=== PATIENT | male | born 1960 | race Caucasian/White ===

== ENCOUNTER 2023-07-19 16:20 | Observation (INO) ==
[2023-07-19] MEDS: ONDANSETRON INJ 2 MG/ML 2 ML VIAL IV STA (16:36)
[2023-07-19] MEDS: SODIUM CHLORIDE 0.9% 500 ML IV STA (16:36)
--- NOTE | 2023-07-19 16:45 | Emergency Department Note ---
Impression & Plan Precordial chest pain, Epigastric abdominal pain, Acute hyponatremia, Vomiting ED Provider Note NAME: NAZ MARIE AGE: 62 SEX: M : 1960 ARRIVES VIA: Walk-In INFORMANT: [Patient] ED PROVIDER(S): [Herman Muro MD] CHIEF COMPLAINT: Chest pain HISTORY OF PRESENT ILLNESS: The patient is a 62-year-old male presents to the ER with lower sternal chest/abdominal pain. The pain has been present all day, for over 10 hours. The pain has waxed and waned but there has always been some discomfort present. He has felt short of breath and nauseated and he did vomit 1 time. No diarrhea. No fever, no cough. The patient does not have any diagnosed coronary disease. He has had pancreatitis in the past that was thought medication related. The patient sometimes does drink 10 beers a day. The patient is not from the area, he is driving through. He stopped at this hospital as he was concerned for his heart. PMHx/PSHx/Social Hx: See Below PHYSICAL EXAM: GENERAL: Patient is in no acute distress. HEENT: No acute trauma, normocephalic atraumatic, mucous membranes moist, no nasal congestion. NECK: No stridor, no adenopathy, no meningismus, trachea is midline. LUNGS: Clear to auscultation bilaterally, no wheeze, no rhonchi, breath sounds equal. HEART: Without murmurs gallops or rubs, regular rate and rhythm. ABDOMEN: Soft, tender in the midepigastrium, no distention EXTREMITIES: No cyanosis, full range of motion of all the joints without pain or difficulty. NEUROLOGIC: Oriented x 3, no acute motor or sensory deficits, no focal weakness. SKIN: No jaundice, no diaphoresis. DIFFERENTIAL DIAGNOSIS: Pancreatitis, biliary colic, gastritis or ulcer, [place], cardiac ischemia, viral illness, among others. EMERGENCY DEPARTMENT PROCEDURES: MEDICAL DECISION MAKING: There is no leukocytosis or concerning anemia. There is a normal platelet count. No coagulopathy. Sodium is low at 128. There was an anion gap present. CO2 was low consistent with some acidosis. There was no renal failure. No concerning liver enzyme elevation. No evidence for pancreatitis. ECG showed a normal sinus rhythm, no ischemia. Cardiac enzyme testing x 2 was not suggestive of acute cardiac injury. Chest x-ray did not show mediastinal widening, pneumonia or pneumothorax. The patient was given IV saline, 1.5 L. He was given IV Pepcid, IV Zofran. The patient does not appear to be having an [place]. His pain is likely gastric in origin. He may have gastritis. He does at times drink alcohol heavily. Given the hyponatremia, given his discomfort, given the elevated anion gap, given his vomiting--further workup inpatient was felt warranted. I spoke with the patient and case management, the on-call hospitalist was consulted. Prior/Outside records/notes reviewed: None ECG per my interpretation: Indication was chest/abdominal pain. The ECG shows a normal sinus rhythm with a rate of 99. There is no acute ST elevation, no PVCs. The QTc is 438. Continuous Cardiac Monitoring per my interpretation: An order was placed for continuous cardiac monitoring. The monitor shows a rate of 97 with normal sinus rhythm. Imaging/x-ray results per my interpretation: Chest x-ray does not show free air, pneumonia or pneumothorax. Chronic Medical/Social conditions affecting care: Previous history of pancreatitis, history of diabetes. Care/Management discussed with: Case management, the on-call hospitalist. Level of care consideration(s): After review of the information above and other included data: --I believe the patient requires escalation of care to admission DISPOSITION: Admission Past Med/Surg History Problem List (Updated 07/19/23 @ 21:33 by Herman Muro MD) Vomiting (Acute) Acute hyponatremia (Acute) Epigastric abdominal pain (Acute) Precordial chest pain (Acute) Hyponatremia Abdominal pain T2DM (type 2 diabetes mellitus) Medical History Alcohol use Hypertension Social History Smoking Status: Former smoker Tobacco Type: Cigarettes and Smokeless Tobacco (Dip or Chew) Hx Alcohol Use: Yes Feels Safe at Home: Yes Allergies Allergies Allergy/AdvReac Type Severity Reaction Status Date / Time Iodinated Contrast Media Allergy Intermediate Hives Unverified 07/19/23 20:25 feathers Allergy Mild Sneezing Verified 07/19/23 17:05 metformin AdvReac Severe PANCREATITI Verified 07/19/23 17:05 S Home Meds Home Medications Medication Instructions Recorded Confirmed No Known Home Medications 07/19/23 07/19/23 Results & Data (ED) Vital Signs Vital Signs - 24 hr 07/19/23 16:22 07/19/23 16:31 07/19/23 16:41 Temperature 36.4 C L Temperature Source Oral Pulse Rate 102 H 97 H Pulse Rate [Apical] Respiratory Rate 18 Respiratory Effort / Characteristics Non-Labored Respiratory Depth Normal Respiratory Pattern Regular Blood Pressure 114/69 Blood Pressure [Right Arm] Blood Pressure Mean 84 Blood Pressure Mean [Right Arm] Pulse Oximetry 97 Oxygen Delivery Method Room Air Room Air Sepsis Recent Fever Within 48 Hours No Sepsis New/Unexplained Change in Mental Status N/A Sepsis Action Taken by Nursing No Action Required 07/19/23 18:21 07/19/23 20:46 Temperature Temperature Source Pulse Rate 95 H Pulse Rate [Apical] 99 H Respiratory Rate 19 Respiratory Effort / Characteristics Respiratory Depth Respiratory Pattern Blood Pressure Blood Pressure [Right Arm] 136/79 Blood Pressure Mean Blood Pressure Mean [Right Arm] 98 Pulse Oximetry Oxygen Delivery Method Sepsis Recent Fever Within 48 Hours Sepsis New/Unexplained Change in Mental Status Sepsis Action Taken by Alf Medications Current Medication List: was personally reviewed by me Laboratory Data Attestation: I reviewed the patient's lab results. 07/19/23 17:48 07/19/23 16:38 Lab Results 07/19/23 07/19/23 07/19/23 Range/Units 16:38 17:48 17:49 WBC Cancelled 6.15 RBC Cancelled 4.90 Hgb Cancelled 14.6 Hct Cancelled 40.8 L MCV Cancelled 83.3 MCH Cancelled 29.8 MCHC Cancelled 35.8 RDW Std Deviation Cancelled 39.5 RDW Coeff of Caity Cancelled 13.1 Plt Count Cancelled 283 MPV Cancelled 8.9 L Immature Gran % (Auto) Cancelled 1.0 Neut % (Auto) Cancelled 65.0 Lymph % (Auto) Cancelled 21.0 Mcleod % (Auto) Cancelled 10.4 Eos % (Auto) Cancelled 1.8 Baso % (Auto) Cancelled 0.8 Neut # (Auto) Cancelled 4.00 Lymph # (Auto) Cancelled 1.29 Mcleod # (Auto) Cancelled 0.64 H Eos # (Auto) Cancelled 0.11 Baso # (Auto) Cancelled 0.05 Immature Gran # (Auto) Cancelled 0.06 Absolute Nucleated RBC Cancelled Nucleated RBC % (auto) Cancelled Neutrophils % (Manual) Cancelled Band Neutrophils % Cancelled Lymphocytes % (Manual) Cancelled Prolymphocyte % Cancelled Reactive Lymphs % (Man) Cancelled Monocytes % (Manual) Cancelled Eosinophils % (Manual) Cancelled Basophils % (Manual) Cancelled Metamyelocytes % (Man) Cancelled Myelocytes % (Man) Cancelled Promyelocytes % (Man) Cancelled Blast Cells % (Manual) Cancelled Plasma Cell % (Manual) Cancelled Other Cells % Cancelled Nucleated RBC % Cancelled Neutrophils # (Manual) Cancelled Band Neutrophils # Cancelled Total Absolute Neuts Cancelled Lymphocytes # (Manual) Cancelled Prolymphocyte # Cancelled Reactive Lymphs # Cancelled Total Abs Lymphocytes Cancelled Monocytes # (Manual) Cancelled Eosinophils # (Manual) Cancelled Basophils # (Manual) Cancelled Metamyelocytes # (Man) Cancelled Myelocytes # (Manual) Cancelled Promyelocytes # (Man) Cancelled Blast Cells # (Man) Cancelled Plasma Cell # (Manual) Cancelled Other Cells # Cancelled Nucleated RBCs # (Man) Cancelled Hypersegmented Neuts Cancelled Hyposegmented Neuts Cancelled Hypogranular Neuts Cancelled Large Granular Lymphs Cancelled # Lrg Granular Lymphs Cancelled Hairy Cells Cancelled Smudge Cells Cancelled Toxic Granulation Cancelled Toxic Vacuolation Cancelled Dohle Bodies Cancelled Kyle Rods Cancelled Platelet Estimate Cancelled Hypogranular Platelets Cancelled Giant Platelets Cancelled Platelet Satelliting Cancelled RBC Morphology Cancelled Polychromasia Cancelled Hypochromasia Cancelled Poikilocytosis Cancelled Basophilic Stippling Cancelled Anisocytosis Cancelled Microcytosis Cancelled Macrocytosis Cancelled Spherocytes Cancelled Pappenheimer Bodies Cancelled Sickle Cells Cancelled Target Cells Cancelled Tear Drop Cells Cancelled Ovalocytes Cancelled Stomatocytes Cancelled Boone-Hemlock Bodies Cancelled Echinocytes Cancelled Acanthocytes (Spur) Cancelled Rouleaux Cancelled RBC Agglutinates Cancelled Schistocytes Cancelled Sezary Cell Cancelled PT 10.0 (9.0-12.0) Seconds INR 0.9 (0.9-1.1) APTT 22 (21-31) Seconds PTT Ratio 0.8 VBG pH (7.36-7.41) VBG pCO2 (38-50) mmHg VBG pO2 mmHg VBG HCO3 mmol/L VBG O2 Saturation % VBG Base Excess mEq/L Sodium 128 L (136-145) mmol/L Potassium 4.5 (3.5-5.1) mmol/L Chloride 92 L (98-107) mmol/L Carbon Dioxide 19 L (21-32) mmol/L Anion Gap 17 H (3-11) BUN 9 (6-23) mg/dl Creatinine 0.59 L (0.6-1.4) mg/dl Est Cr Clr Drug Dosing 137.5 ml/min Est GFR ( Amer) 127.5 ml/min Est GFR (Non-Af Amer) 110.0 ml/min BUN/Creatinine Ratio 15.3 (10-20) Glucose 162 H (70-99(Fasting)) mg/dl POC Glucose (70-99) mg/dl Calcium 10.3 (8.6-10.3) mg/dl Magnesium 1.7 (1.7-2.4) mg/dl Total Bilirubin 0.6 (0.2-1.0) mg/dl AST 23 (13-39) U/L ALT 22 (7-52) U/L Alkaline Phosphatase 55 (34-104) U/L Troponin I High Sens 8.6 9.1 (0-20) pg/ml Total Protein 7.6 (6.0-8.3) gm/dl Albumin 4.4 (3.4-5.0) gm/dl Globulin 3.2 (2.5-4.0) gm/dl Albumin/Globulin Ratio 1.4 (0.9-2) Lipase 23 (11-82) U/L Blood Parasites ID Cancelled 07/19/23 07/19/23 Range/Units 20:30 20:33 WBC RBC Hgb Hct MCV MCH MCHC RDW Std Deviation RDW Coeff of Caity Plt Count MPV Immature Gran % (Auto) Neut % (Auto) Lymph % (Auto) Mcleod % (Auto) Eos % (Auto) Baso % (Auto) Neut # (Auto) Lymph # (Auto) Mcleod # (Auto) Eos # (Auto) Baso # (Auto) Immature Gran # (Auto) Absolute Nucleated RBC Nucleated RBC % (auto) Neutrophils % (Manual) Band Neutrophils % Lymphocytes % (Manual) Prolymphocyte % Reactive Lymphs % (Man) Monocytes % (Manual) Eosinophils % (Manual) Basophils % (Manual) Metamyelocytes % (Man) Myelocytes % (Man) Promyelocytes % (Man) Blast Cells % (Manual) Plasma Cell % (Manual) Other Cells % Nucleated RBC % Neutrophils # (Manual) Band Neutrophils # Total Absolute Neuts Lymphocytes # (Manual) Prolymphocyte # Reactive Lymphs # Total Abs Lymphocytes Monocytes # (Manual) Eosinophils # (Manual) Basophils # (Manual) Metamyelocytes # (Man) Myelocytes # (Manual) Promyelocytes # (Man) Blast Cells # (Man) Plasma Cell # (Manual) Other Cells # Nucleated RBCs # (Man) Hypersegmented Neuts Hyposegmented Neuts Hypogranular Neuts Large Granular Lymphs # Lrg Granular Lymphs Hairy Cells Smudge Cells Toxic Granulation Toxic Vacuolation Dohle Bodies Kyle Rods Platelet Estimate Hypogranular Platelets Giant Platelets Platelet Satelliting RBC Morphology Polychromasia Hypochromasia Poikilocytosis Basophilic Stippling Anisocytosis Microcytosis Macrocytosis Spherocytes Pappenheimer Bodies Sickle Cells Target Cells Tear Drop Cells Ovalocytes Stomatocytes Boone-Hemlock Bodies Echinocytes Acanthocytes (Spur) Rouleaux RBC Agglutinates Schistocytes Sezary Cell PT (9.0-12.0) Seconds INR (0.9-1.1) APTT (21-31) Seconds PTT Ratio VBG pH 7.39 (7.36-7.41) VBG pCO2 37 L (38-50) mmHg VBG pO2 40 mmHg VBG HCO3 22 mmol/L VBG O2 Saturation 71.0 % VBG Base Excess -2.2 mEq/L Sodium (136-145) mmol/L Potassium (3.5-5.1) mmol/L Chloride (98-107) mmol/L Carbon Dioxide (21-32) mmol/L Anion Gap (3-11) BUN (6-23) mg/dl Creatinine (0.6-1.4) mg/dl Est Cr Clr Drug Dosing ml/min Est GFR ( Amer) ml/min Est GFR (Non-Af Amer) ml/min BUN/Creatinine Ratio (10-20) Glucose (70-99(Fasting)) mg/dl POC Glucose 149 H (70-99) mg/dl Calcium (8.6-10.3) mg/dl Magnesium (1.7-2.4) mg/dl Total Bilirubin (0.2-1.0) mg/dl AST (13-39) U/L ALT (7-52) U/L Alkaline Phosphatase (34-104) U/L Troponin I High Sens (0-20) pg/ml Total Protein (6.0-8.3) gm/dl Albumin (3.4-5.0) gm/dl Globulin (2.5-4.0) gm/dl Albumin/Globulin Ratio (0.9-2) Lipase (11-82) U/L Blood Parasites ID Administered Medications Diphenhydramine HCl (Diphenhydramine 50 Mg/Ml Vial) 50 mg IV ONE ONE Stop: 07/19/23 23:34 Last Admin: 07/19/23 19:45 Dose: Not Given Documented By: KALI Discontinued Medications Diphenhydramine HCl (Diphenhydramine 50 Mg/Ml Vial) Confirm Administered Dose 50 mg .ROUTE .STK-MED ONE Stop: 07/19/23 19:41 Last Admin: 07/19/23 19:44 Dose: 50 mg Documented By: KALI Sodium Chloride (Nss) 500 mls @ 999 mls/hr IV .Q31M STA Stop: 07/19/23 17:01 Last Infusion: 07/19/23 17:07 Dose: Infused Documented By: Admin: 07/19/23 16:36 Dose: 999 mls/hr Documented By: ABIMBOLA Famotidine (Pepcid 20mg Iv Push) 20 mg in 5 mls @ 2.5 mls/min IV NOW STA Stop: 07/19/23 16:42 Last Admin: 07/19/23 16:54 Dose: 2.5 mls/min Documented By: KALI Sodium Chloride (Nss) 1,000 mls @ 999 mls/hr IV .Q1H1M ONE Stop: 07/19/23 19:14 Last Infusion: 07/19/23 19:47 Dose: Infused Documented By: Admin: 07/19/23 18:46 Dose: 999 mls/hr Documented By: KALI Insulin Glargine (Lantus Per Unit Charge) 5 units SQ NOW STA Stop: 07/19/23 19:27 Last Admin: 07/19/23 20:37 Dose: 5 units Documented By: KALI Co-signed By: EZIO Ioversol (Optiray 320 100ml) 94 ml IV ONCE ONE Stop: 07/19/23 20:21 Last Admin: 07/19/23 20:21 Dose: 94 ml Documented By: MADISYN Methylprednisolone (Methylprednisolone 125 Mg/2 Ml Vial) 125 mg IV NOW STA Stop: 07/19/23 19:34 Last Admin: 07/19/23 19:42 Dose: 125 mg Documented By: KALI Ondansetron HCl (Ondansetron Inj 2 Mg/Ml 2 Ml Vial) 4 mg IV NOW STA Stop: 07/19/23 16:32 Last Admin: 07/19/23 16:36 Dose: 4 mg Documented By: ABIMBOLA Pantoprazole Sodium (Pantoprazole 40 Mg Tab) 40 mg PO NOW ONE Stop: 07/19/23 19:31 Last Admin: 07/19/23 19:41 Dose: 40 mg Documented By: KALI Imaging Data Radiologist's Impression: Chest X-Ray 07/19/23 16:31 SINGLE VIEW CHEST CLINICAL HISTORY: Atypical chest pain. FINDINGS: An AP, portable, upright chest radiograph is obtained. No prior studies are available for comparison at the time of dictation. The examination is mildly degraded by portable technique and patient rotation. The cardiomediastinal silhouette is unremarkable noting atherosclerotic calcification of the thoracic aorta. There is mild bibasilar atelectasis. The lungs and pleural spaces are otherwise clear. No pneumothorax is seen. The bony thorax is grossly intact. IMPRESSION: No acute cardiopulmonary abnormality. ACT 112: Negative or not required by law. Electronically signed by: Herman Marinelli M.D. 07/19/2023 4:49 PM Discharge Plan Visit Data Chief Complaint: Chest Pain Stated Complaint: SOB, CHEST PAINS, NAUSEA ED Provider: Herman Muro Discharge Problem: Precordial chest pain, Epigastric abdominal pain, Acute hyponatremia, Vomiting Patient Disposition: Admitted As Inpatient Condition: Fair Forms Stand Alone Forms: [employer] Prescriptions Prescriptions: No Action No Known Home Medications Referrals Referrals: PCP,NO [Primary Care Provider] - Discharge Problem: Vomiting Qualifiers: Vomiting type: unspecified Nausea presence: with nausea Qualified Code(s): R 11.2 - Nausea with vomiting, unspecified
--- NOTE | 2023-07-19 16:50 | XRay Report ---
SINGLE VIEW CHEST CLINICAL HISTORY: Atypical chest pain. FINDINGS: An AP, portable, upright chest radiograph is obtained. No prior studies are available for c omparison at the time of dictation. The examination is mildly degraded by portable technique and harry ent rotation. The cardiomediastinal silhouette is unremarkable noting atherosclerotic calcification of the thoracic aorta. There is mild bibasilar atelectasis. The lungs and pleural spaces are otherwis e clear. No pneumothorax is seen. The bony thorax is grossly intact. IMPRESSION: No acute cardiopulmonary abnormality. ACT 112: Negative or not required by law. Electronically signed by: Herman Marinelli M.D. 07/19/2023 4:49 PM
[2023-07-19] MEDS: FAMOTIDINE 20MG IV PUSH 20 MG/5 ML SYR IV STA (16:54)
[2023-07-19 17:08] LABS: Albumin Globulin Ratio 1.4 (0.9-2); Albumin Level 4.4 gm/dl (3.4-5.0); BUN Creatinine Ratio 15.3 (10-20); Bilirubin,Total 0.6 mg/dl (0.2-1.0); Calcium 10.3 mg/dl (8.6-10.3); Creatinine Clr Calc Pharmacy 137.5 ml/min; Est GFR (African American) 127.5 ml/min; Globulin 3.2 gm/dl (2.5-4.0); Magnesium 1.7 mg/dl (1.7-2.4); Potassium 4.5 mmol/L (3.5-5.1); Total Protein 7.6 gm/dl (6.0-8.3)
[2023-07-19 17:15] LABS: Troponin I High Sensitivity 8.6 pg/ml (0-20)
[2023-07-19 17:41] LABS: INR 0.9 (0.9-1.1); Partial Thromboplastin Ratio 0.8; Partial Thromboplastin Time 22 Seconds (21-31)
[2023-07-19 18:11] LABS: Basophils # (auto) 0.05 K/uL (0.00-0.20); Basophils % (auto) 0.8 %; Eosinophils # (auto) 0.11 K/uL (0.00-0.50); Eosinophils % (auto) 1.8 %; Hematocrit (blood only) 40.8 % (42.0-52.0); Hemoglobin 14.6 g/dl (14.0-18.0); Immature Granulocytes # (auto) 0.06 K/uL (0.01-0.20); Lymphocytes # (auto) 1.29 K/uL (1.20-3.40); Mean Corpuscular Hemoglobin 29.8 pg (25.0-34.0); Mean Corpuscular Hgb Conc 35.8 g/dL (32.0-36.0); Mean Corpuscular Volume 83.3 fL (80.0-100.0); Mean Platelet Volume 8.9 fL (9.4-12.4); Monocytes # (auto) 0.64 K/uL (0.11-0.59); Monocytes % (auto) 10.4 %; Platelet Count 283 K/uL (130-400); RDW Coefficient of Variation 13.1 % (11.5-14.5); RDW Standard Deviation 39.5 fL (36.4-46.3); White Blood Count 6.15 K/ul (4.8-10.8)
[2023-07-19] MEDS: SODIUM CHLORIDE 0.9% 1,000 ML IV ONE (18:46)
--- NOTE | 2023-07-19 18:58 | History & Physical Report ---
Date of Service July 19, 2023 Assessment & Plan (1) Abdominal pain: Plan: Nausea/vomiting On exam patient does have focal right lower quadrant tenderness to palpation with nausea/vomiting. CTA/P to evaluate for appendicitis ordered DDx includes gastritis with intermittent binge drinking. Patient is with some hyponatremia at 128, although this is relatively mild given his degree of symptoms Poor p.o. intake and ?Starvation ketosis. Anion gap is elevated, although BSG is 162. Chest pain Suspect referred pain Troponin is without ischemic EKG changes. High sensitive troponin at 2-hour repeat are both normal, given 10 hours of constant pain to normal troponin is extremely reassuring that this is highly unlikely to be ACS/cardiac in origin (2) T2DM (type 2 diabetes mellitus): Plan: Patient not currently taking any medications does not follow with a doctor. Has history of type II DM A1c pending Weight-based basal bolus ordered Goal BSG 900205 (3) Hypertension: Plan: Formally on lisinopril, normotensive on admission. Will monitor (4) Alcohol use: Plan: Patient reports he drinks 1 to 2 days/week, about 8-10 beers in a sitting when he does drink. Has had multiple recent alcohol free days without withdrawal symptoms If signs of alcohol withdrawal develop, frontloaded with Valium 10 mg and started on [address] on at risk protocol while inpatient (5) Hyponatremia: Plan: ? Slight depletion versus beer Potomania Received IV hydration in the ER Mild at 128. Trend. If further decreasing obtain osmolality/urine electrolytes and fluid restrict Plan DVT prophylaxis: Lovenox Disposition: Medical telemetry due to chest pain CODE STATUS: Full code Diet: DM 2 History of Present Illness Primary Care Provider: NO PCP Aj is a 62-year-old male who presents to the ER with 10 hours of lower sternal chest/abdominal pain waxing and waning but generally constant since this morning. EKG is normal sinus rhythm without territorial ischemia, Trope and 2- hour repeat are normal. Sodium is 128, potassium is 4.5. Woke up this morning with pain in his chest and stomach. Lives in his truck, got up and got back on the road and noted pain was waxing and waning as he drove but was constant for many hours. Got nauseaus and short of breath intermittent. 1x vomiting this AM, clear, nonbloody, nonbilious. Has continued to be nauseus through the day. Denies abdominal pain. +poor appetite. No diarrhea, some slight intermittent constipation with none recently and nochange. No sweating. No fever, no chills but has been cold. MedHx: - T2DM, currently not on treatment - Denies history of CAD - Hx of L heel sore - No history of strokes, blood clots, liver disease, or kidney disease Does not take any prescription medications, but had been on lisinopril for blood pressure in the past. Was on lantus in the past. Does not have a PCP. HE is on his way back to [place] after beign in [place] for a few months. Was on his way back, when he had chest pain today. Medical History: Reviewed Medications: Reviewed Surgical History: Reviewed Family history: Reviewed Allergies: Reviewed. NKDA Social History: Chews 1 can of snuff weekly x40 years. Former cigarette use, no vape use. Alcohol use 1-2 days per week, 8-10 beers when he does drink.Had a beer last night Code Status: Full COde Allergies Allergy/AdvReac Type Severity Reaction Status Date / Time Iodinated Contrast Media Allergy Intermediate Hives Unverified 07/19/23 20:25 feathers Allergy Mild Sneezing Verified 07/19/23 17:05 metformin AdvReac Severe PANCREATITI Verified 07/19/23 17:05 S Home Medications Medication Instructions Recorded Confirmed Type No Known Home Medications 07/19/23 07/19/23 History Past Med/Surg History Problem List (Updated 07/20/23 @ 11:15 by Delfina Junior MD) Adjustment disorder with depressed mood Chest pain Suicidal ideation Diabetic ketoacidosis Vomiting (Acute) Acute hyponatremia (Acute) Epigastric abdominal pain (Acute) Precordial chest pain (Acute) Hyponatremia Abdominal pain T2DM (type 2 diabetes mellitus) Medical History Alcohol use Hypertension Social History Smoking Status: Former smoker Tobacco Type: Cigarettes and Smokeless Tobacco (Dip or Chew) Hx Alcohol Use: Yes Alcohol type: beer Hx Substance Use: No Preferred Language: P[employer] Required: No Feels Safe at Home: Yes Assistive Devices: Cane and Glasses Review of Systems Review of Systems: General: A&Ox3. NAD. Cooperative. HEENT: Atraumatic, normocephalic. Vision/hearing Pulm: CTAB A&P. -wheezes, -rales, -rhonchi. Symmetrical chest rise. No increased work of breathing. No respiratory distress. Cardiac: regular, tachycardia, -mrg. Radial pulses intact and symmetrical. Abdominal: RLQ TTP, mild epigastric TTP. No rebound/guarding Ext: Left plantar heel with slight grade I pressure ulcer, no erythema/warmth. Right plantar foor with lateral grade I pressure sore, noerythema/warmth/discharge. This extends to a grade II ulcer on the lateral foot without erythema/warmth/discharge. Results & Data Results & Data Vital Signs (Past 12 Hours) Vital Signs Temp Pulse Pulse Resp BP BP Pulse Ox 07/19/23 18:21 99 H 19 136/79 07/19/23 16:41 97 H 07/19/23 16:31 07/19/23 16:22 36.4 C L 102 H 18 114/69 97 O2 Del Method 07/19/23 18:21 07/19/23 16:41 07/19/23 16:31 Room Air 07/19/23 16:22 Room Air PG Care Time/CCT Total # of Minutes Spent Total Time Spent with Patient: Total time spent is greater than 50% in coordination of care (as documented) at patient's floor/unit and/or counseling patient: Coding Level of Care Code 46352 INT INP/OBS CARE 3/75MIN Diagnoses Abdominal pain R10.9 T2DM (type 2 diabetes mellitus) E11.9 Hypertension I10 Alcohol use Z78.9 Hyponatremia E87.1
[2023-07-19] MEDS ORDERED: ALUMINUM/MAGNESIUM SUSP 30 ML UDC PO PRN (19:18)
[2023-07-19] MEDS ORDERED: GLUCOSE 10 TAB/TUBE PO PRN (19:21)
[2023-07-19] MEDS ORDERED: CARBOHYDRATES FOR HYPOGLYCEMIA PO PRN (19:21)
[2023-07-19] MEDS ORDERED: GLUCOSE 40% GEL 15 GM TUBE PO PRN (19:21)
[2023-07-19] MEDS ORDERED: DEXTROSE 50% 50 ML SYRINGE IV PRN (19:21)
[2023-07-19] MEDS ORDERED: GLUCAGON FOR INJ 1 MG VIAL SQ PRN (19:21)
[2023-07-19] MEDS: PANTOprazole 40 MG TAB PO ONE (19:41)
[2023-07-19] MEDS: methylPREDNISolone 125 MG/2 ML VIAL IV STA (19:42)
[2023-07-19] MEDS: diphenhydrAMINE 50 MG/ML VIAL ONE (19:44)
[2023-07-19] MEDS: diphenhydrAMINE 50 MG/ML VIAL IV ONE (19:45)
[2023-07-19] MEDS: OPTIRAY 320 100ml IV ONE (20:21)
[2023-07-19] MEDS: LANTUS PER UNIT CHARGE SQ STA (20:37)
[2023-07-19 20:40] LABS: Base Excess VBG -2.2 mEq/L; HCO3 VBG 22 mmol/L; PCO2 VBG 37 mmHg (38-50); PO2 VBG 40 mmHg; pH VBG 7.39 (7.36-7.41)
[2023-07-19] MEDS: LACTATED RINGER'S 1,000 ML IV SCH (21:27)
[2023-07-19] MEDS: INSULIN ASPART PER UNIT CHARGE SC SCH (22:25)
[2023-07-19] MEDS ORDERED: LORazepam 1 MG TAB PO PRN (22:35)
[2023-07-20 01:04] LABS: BUN Creatinine Ratio 20.6 (10-20); Calcium 9.8 mg/dl (8.6-10.3); Creatinine Clr Calc Pharmacy 128.7 ml/min; Est GFR (African American) 124.1 ml/min; Est GFR (Non-African American) 107.1 ml/min; Potassium 4.8 mmol/L (3.5-5.1)
--- NOTE | 2023-07-20 01:07 | CT Scan Report ---
Exam(s): CT ABDOMEN + PELVIS With Contrast IV Amt: OPTIRAY 320 94ML EXAM: CT Abdomen and Pelvis With Intravenous Contrast CLINICAL HISTORY: Reason for exam: RLQ abdominal pain, N/V. TECHNIQUE: Axial computed tomography images of the abdomen and pelvis with intravenous contrast. CTDI is 19.34 mGy and DLP is 1038.16 mGy-cm. Automated exposure control was utilized for the study. A dose lowering technique was utilized adhering to the principles of ALARA. CONTRAST: Patient received OPTIRAY 320 94ML of IV contrast COMPARISON: No relevant prior studies available. FINDINGS: Lung bases: Unremarkable. No mass. No consolidation. ABDOMEN: Liver: Hepatic steatosis. Gallbladder and bile ducts: Unremarkable. No calcified stones. No ductal dilation. Pancreas: Unremarkable. No mass. No ductal dilation. Spleen: Unremarkable. No splenomegaly. Adrenals: Unremarkable. No mass. Kidneys and ureters: Unremarkable. No hydronephrosis or delayed nephrogram. Stomach and bowel: Diverticulosis, without acute diverticulitis. No small bowel obstruction. No free intraperitoneal air. PELVIS: Appendix: No findings to suggest acute appendicitis. Bladder: Wall thickening of the anterior urinary bladder, which measures up to 8 mm in thickness. Correlate for UTI. Given the patient's age and asymmetric involvement of the bladder thickening, bladder neoplasm cannot be excluded. Consider nonemergent neurology evaluation. Reproductive: Unremarkable as visualized. ABDOMEN and PELVIS: Intraperitoneal space: Unremarkable. No free air. No significant fluid collection. Bones/joints: Degenerative changes of the spine. No acute fracture. No dislocation. Soft tissues: Unremarkable. Vasculature: Atherosclerotic changes of the aorta. No abdominal aortic aneurysm. Lymph nodes: Unremarkable. No enlarged lymph nodes. IMPRESSION: 1. Wall thickening of the anterior urinary bladder, which measures up to 8 mm in thickness. Correlate for UTI. Given the patient's age and asymmetric involvement of the bladder thickening, bladder neoplasm cannot be excluded. Consider nonemergent neurology evaluation. 2. Hepatic steatosis. 3. Diverticulosis, without acute diverticulitis. No small bowel obstruction. No free intraperitoneal air. Electronically signed by: Vladimir Clifford MD 07/20/23 01:06 AM
[2023-07-20 06:33] LABS: Basophils # (auto) 0.02 K/uL (0.00-0.20); Basophils % (auto) 0.2 %; Hematocrit (blood only) 45.7 % (42.0-52.0); Hemoglobin 16.1 g/dl (14.0-18.0); Immature Granulocytes % (auto) 1.2 %; Lymphocytes # (auto) 0.61 K/uL (1.20-3.40); Lymphocytes % (auto) 7.5 %; Mean Corpuscular Hemoglobin 30.1 pg (25.0-34.0); Mean Corpuscular Hgb Conc 35.2 g/dL (32.0-36.0); Mean Corpuscular Volume 85.4 fL (80.0-100.0); Mean Platelet Volume 9.2 fL (9.4-12.4); Monocytes # (auto) 0.13 K/uL (0.11-0.59); Monocytes % (auto) 1.6 %; Neutrophils # (auto) 7.29 K/uL (1.40-6.50); Neutrophils % (auto) 89.5 %; Platelet Count 295 K/uL (130-400); RDW Coefficient of Variation 13.2 % (11.5-14.5); RDW Standard Deviation 41.1 fL (36.4-46.3); Red Blood Count 5.35 M/uL (4.70-6.10); White Blood Count 8.15 K/ul (4.8-10.8)
[2023-07-20 06:50] LABS: Magnesium 1.8 mg/dl (1.7-2.4)
--- NOTE | 2023-07-20 07:18 | Electrocardiogram Report ---
Test Reason : Blood Pressure : / mmHG Vent. Rate : 099 BPM Atrial Rate : 099 BPM P-R Int : 142 ms QRS Dur : 088 ms QT Int : 342 ms P-R-T Axes : 066 -39 073 degrees QTc Int : 438 ms Normal sinus rhythm Left axis deviation Abnormal ECG No previous ECGs available Confirmed by Familia Garcia ([id number]) on 07/20/2023 7:18:05 AM Referred By: REFERRED SELF Confirmed By:Isidoro Garcia
[2023-07-20] MEDS: SODIUM CHLORIDE 0.9% 1,000 ML IV SCH (07:52)
[2023-07-20] MEDS: FAMOTIDINE 20MG IV PUSH 20 MG/5 ML SYR IV SCH (07:53)
[2023-07-20 07:54] LABS: Calcium 9.7 mg/dl (8.6-10.3); Creatinine Clr Calc Pharmacy 101.4 ml/min; Est GFR (African American) 112.5 ml/min; Est GFR (Non-African American) 97.1 ml/min; Potassium 5.1 mmol/L (3.5-5.1)
[2023-07-20 08:32] LABS: Appearance Urine Clear (Clear); Bacteria Urine Automated None Seen (None Seen); Bilirubin Urine Negative (Negative); Blood Urine Negative (Negative); Cast Urine Automated 0-2 /lpf (0-2); Color Urine Yellow; Epithelial Cell Urine Auto 0-2 /hpf (0-2); Glucose Urine UA 3+ (Negative); Ketones Urine 4+ (Negative); Leukocyte Esterase Urine Negative (Negative); Nitrite Urine Negative (Negative); Protein Urine Trace (Negative); RBC Urine Automated 0-2 /hpf (0-2); Specific Gravity Urine 1.016 (1.000-1.030); Urobilinogen Urine Negative (Negative); WBC Urine Automated 0-5 /hpf (0-5)
[2023-07-20] MEDS ORDERED: LANTUS PER UNIT CHARGE SQ SCH (09:00)
[2023-07-20] MEDS ORDERED: VANCOMYCIN CONSULT ACTIVE PRN (09:21)
[2023-07-20] MEDS ORDERED: DEXTROSE 50% 50 ML SYRINGE IV PRN (09:23)
[2023-07-20] MEDS ORDERED: GLUCOSE 40% GEL 15 GM TUBE PO PRN (09:23)
[2023-07-20] MEDS ORDERED: CARBOHYDRATES FOR HYPOGLYCEMIA PO PRN (09:23)
[2023-07-20] MEDS ORDERED: GLUCOSE 10 TAB/TUBE PO PRN (09:23)
[2023-07-20] MEDS ORDERED: GLUCAGON FOR INJ 1 MG VIAL SQ PRN (09:23)
[2023-07-20] MEDS: PANTOprazole 40 MG TAB PO SCH (09:35)
[2023-07-20] MEDS: INSULIN HUMAN NPH SC SCH ×2 (10:44→21:18)
[2023-07-20] MEDS: VANCOMYCIN HCL 2,000 MG in SODIUM CHLORIDE 0.9% 500 ML IV ONE (10:44)
[2023-07-20] MEDS: CEFEPIME 2,000 MG in SYRINGE 0 ML IV SCH (10:44)
--- NOTE | 2023-07-20 10:58 | Hospitalist Progress Note ---
Date of Service July 20, 2023 Assessment & Plan (1) Diabetic ketoacidosis: Plan: Suspected. Probable cause of metabolic acidosis. He states he has not taken his usual insulin for the past 3 weeks. Glucose is 269 and anion gap 25. He is now on basal insulin therapy along with sliding scale coverage. Continue IV fluids for now (2) Suicidal ideation: Plan: Currently denied by patient. He has been seen by psychiatry and he is no longer a threat to himself or others and does not require suicide precautions and does not need inpatient treatment at this time (3) Abdominal pain: Plan: Appears to be due to DKA. Symptomatic treatment. (4) T2DM (type 2 diabetes mellitus): Plan: By history. He states he has not had any insulin for the past 3 weeks. He is now on basal insulin therapy along with sliding scale coverage. ADA diet. A1c pending (5) Hypertension: Plan: Formally on lisinopril. Normotensive on admission. Will monitor (6) Alcohol use: Plan: Patient reports he drinks 1 to 2 days/week, about 8-10 beers in a sitting when he does drink. Has had multiple recent alcohol free days without withdrawal symptoms. (7) Hyponatremia: Plan: Serum osmolarity 300. This appears to be pseudohyponatremia due to hyperglycemia. Serial labs. Will follow. (8) Chest pain: Plan: Atypical. No acute EKG changes. No evidence of acute coronary syndrome. Will follow Plan Hopeful discharge back to his residence in [place] within the next day or 2 Admission and Anticipated Discharge Date Admission Date: July 19, 2023 Subjective Alert and oriented. Overall I suspect he has diabetic ketoacidosis causing the metabolic acidosis. Glucose has risen to 269 and anion gap is now 25. Urine analysis reveals glucose and ketones without any source of infection. However, he does have multiple skin excoriations and occult infection needs to be ruled out. Blood cultures are ordered and he is now on cefepime and vancomycin. Basal insulin therapy has been started along with sliding scale coverage and he is now on an ADA diet. Hemoglobin A1c is pending. Serum osmolarity is elevated at 300. Sodium has improved to 131 with IV fluids which we will continue for now. He denies any suicidal ideation. Psychiatry has seen the patient and he has been cleared from their standpoint. He does not require suicide precautions and does not require inpatient treatment. Review of Systems 2 Review of Systems: Constitutional-no fever or chills ENT-no blurred vision, no double vision, no epistaxis, no sore throat Respiratory-no cough, no wheezing, no shortness of breath Cardiac-no palpitations, no chest pain, no syncope GI-no nausea, vomiting, diarrhea, melena, hematochezia -no urinary retention, no urinary incontinence, no dysuria, no hematuria Musculoskeletal-no joint pain, no muscle tenderness Skin-scattered excoriations on bilateral lower extremities below the knees. Neuro-no isolated weakness, no paresthesi Psych-no depression, no anxiety. He denies suicidal ideation Physical Exam 2 Physical Exam: General-alert and oriented x3, no fever, no chills HEENT-head atraumatic and normocephalic, pupils equal and reactive to light, extraocular muscles intact Neck-no lymphadenopathy or thyromegaly, trachea midline Chest-clear to auscultation. No rales, wheezing or rhonchi Cardiac-regular rate and rhythm, normal S1 and S2 Abdomen-normal bowel sounds, no hepatosplenomegaly Extremities-no cyanosis, clubbing, or edema Skinmultiple excoriations bilateral lower extremities below the knees Neuro-cranial nerves II through XII intact, motor and sensory function within normal limits, strength symmetrical, no focal deficits Psych-normal affect, normal mood. He denies suicidal ideation Results & Data Results & Data Vital Signs (Past 12 Hours) Vital Signs Temp Pulse Pulse Resp BP Pulse Ox O2 Del Method 07/20/23 10:17 95 H 18 129/65 98 Room Air 07/20/23 07:13 102 H 07/20/23 02:51 90 18 96 Room Air 07/20/23 00:30 36.8 C 94 H 20 164/91 H 97 Room Air Laboratory Results 07/20/23 05:59 07/20/23 05:59 PG Care Time/CCT Total # of Minutes Spent Total Time Spent with Patient: Total time spent is greater than 50% in coordination of care (as documented) at patient's floor/unit and/or counseling patient: Coding Level of Care Code 01807 SUB INP/OBS CARE 3/50MIN Diagnoses Diabetic ketoacidosis E11.10 Suicidal ideation R45.851 Abdominal pain R10.9 T2DM (type 2 diabetes mellitus) E11.9 Hypertension I10 Alcohol use Z78.9 Hyponatremia E87.1 Chest pain R07.9
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
[2023-07-20] MEDS ORDERED: INSULIN ASPART PER UNIT CHARGE SC SCH (11:30)
--- NOTE | 2023-07-20 11:47 | Electrocardiogram Report ---
Test Reason : Blood Pressure : / mmHG Vent. Rate : 094 BPM Atrial Rate : 094 BPM P-R Int : 156 ms QRS Dur : 082 ms QT Int : 360 ms P-R-T Axes : 078 -07 055 degrees QTc Int : 450 ms Normal sinus rhythm Normal ECG When compared with ECG of 19-JUL-2023 16:32, No significant change was found Confirmed by Familia Garcia ([id number]) on 07/20/2023 11:42:13 AM Referred By: REFERRED SELF Confirmed By:Isidoro Garcia
--- NOTE | 2023-07-20 15:40 | Pharmacy Report ---
Pharmacy PK ABX Note - Date of Service July 20, 2023 - Assessment and Plan Assessment 62 year old M receiving vancomycin and cefepime IV for empiric coverage of SSTI. Patient with multiple skin excoriations. Pertinent microbiologic data includes: BC x 2 pending Plan Vancomycin * Loading dose: 2000 mg IV x 1 * Maintenance dose: 1250 mg IV every 12 hours * Regimen is predicted to achieve target AUC/JOSE D of 400-600 mg/L.hr (predicted AUC steady state = 526) * Will obtain level if therapy is continued - currently ordered x 48h Pharmacy will continue to follow and will adjust dose/frequency as necessary. Thank you. Pharmacy has transitioned to AUC monitoring for vancomycin. AUC/JOSE D is the preferred PK/PD target and is associated with decreased risk of nephrotoxicity compared to traditional trough targets.
[2023-07-20 17:18] LABS: BUN Creatinine Ratio 20.8 (10-20); Calcium 9.5 mg/dl (8.6-10.3); Creatinine Clr Calc Pharmacy 84.5 ml/min; Est GFR (African American) 99.2 ml/min; Est GFR (Non-African American) 85.6 ml/min; Potassium 4.3 mmol/L (3.5-5.1)
[2023-07-20] MEDS: VANCOMYCIN HCL 1,250 MG in SODIUM CHLORIDE 0.9% 500 ML IV SCH (20:05)
[2023-07-20] MEDS: ONDANSETRON INJ 2 MG/ML 2 ML VIAL IV PRN (20:17)
[2023-07-21 06:58] LABS: Basophils # (auto) 0.06 K/uL (0.00-0.20); Eosinophils # (auto) 0.04 K/uL (0.00-0.50); Eosinophils % (auto) 0.7 %; Hematocrit (blood only) 40.2 % (42.0-52.0); Immature Granulocytes # (auto) 0.07 K/uL (0.01-0.20); Immature Granulocytes % (auto) 1.2 %; Lymphocytes # (auto) 1.23 K/uL (1.20-3.40); Lymphocytes % (auto) 20.2 %; Mean Corpuscular Hemoglobin 29.6 pg (25.0-34.0); Mean Corpuscular Hgb Conc 34.8 g/dL (32.0-36.0); Monocytes # (auto) 0.72 K/uL (0.11-0.59); Monocytes % (auto) 11.8 %; Neutrophils # (auto) 3.96 K/uL (1.40-6.50); Neutrophils % (auto) 65.1 %; Platelet Count 288 K/uL (130-400); RDW Coefficient of Variation 13.3 % (11.5-14.5); RDW Standard Deviation 41.6 fL (36.4-46.3); Red Blood Count 4.73 M/uL (4.70-6.10); White Blood Count 6.08 K/ul (4.8-10.8)
[2023-07-21 07:20] LABS: BUN Creatinine Ratio 15.9 (10-20); Calcium 9.3 mg/dl (8.6-10.3); Creatinine Clr Calc Pharmacy 98.9 ml/min; Est GFR (African American) 111.4 ml/min; Est GFR (Non-African American) 96.1 ml/min; Potassium 3.8 mmol/L (3.5-5.1)
[2023-07-21] MEDS: METOPROLOL TARTRATE 50 MG TAB PO STA (08:12)
[2023-07-21 08:22] LABS: Estimated Average Glucose 249 mg/dl; Hemoglobin A1C 10.3 % (4.5-5.6)
[2023-07-21] MEDS: INSULIN HUMAN NPH SC SCH (08:52)
--- NOTE | 2023-07-21 13:25 | Hospitalist Progress Note ---
Date of Service July 21, 2023 Assessment & Plan (1) Diabetic ketoacidosis: Plan: Present on admission. Most likely cause of metabolic acidosis. Now resolved. He states he did not take his usual insulin for at least 3 weeks prior to this admission. Anion gap is down to 12 and glucose 258. NPH insulin further uptitrated today, July 20. (2) Suicidal ideation: Plan: Currently denied by patient. He has been seen by psychiatry and he is no longer a threat to himself or others and does not require suicide precautions and does not need inpatient treatment at this time (3) Abdominal pain: Plan: With nausea. Appears to be due to DKA. Symptomatic treatment. Oral Reglan therapy started today, July 20 (4) T2DM (type 2 diabetes mellitus): Plan: By history. He states he has not had any insulin for the past 3 weeks. He is now on basal insulin therapy along with sliding scale coverage. ADA diet. Hemoglobin A1c is markedly elevated at 10.3. (5) Hypertension: Plan: Formerly on lisinopril. Metoprolol started today, July 20, for blood pressure control. Will monitor (6) Alcohol use: Plan: Patient reports he drinks 1 to 2 days/week, about 8-10 beers in a sitting when he does drink. Has had multiple recent alcohol free days without withdrawal symptoms. (7) Hyponatremia: Plan: Serum osmolarity 300. This appears to be pseudohyponatremia due to hyperglycemia. Serial labs. Improving (8) Chest pain: Plan: Atypical. No acute EKG changes. No evidence of acute coronary syndrome. Will follow Plan Hopeful discharge back to his residence in [place] tomorrow, July 21 Admission and Anticipated Discharge Date Admission Date: July 19, 2023 Subjective Alert and oriented. Complaining of nausea. Reglan has been ordered. NPH further uptitrated today, July 20. IV fluids have been discontinued. Anion gap is dropped down to 12. Blood cultures obtained yesterday, July 19, remain negative to date. Cefepime and vancomycin will and after 48 hours as long as cultures are negative. Metoprolol has been started for blood pressure and heart rate control. Hopefully he can be discharged tomorrow, July 21 Review of Systems 2 Review of Systems: Constitutional-no fever or chills ENT-no blurred vision, no double vision, no epistaxis, no sore throat Respiratory-no cough, no wheezing, no shortness of breath Cardiac-no palpitations, no chest pain, no syncope GI-no vomiting, diarrhea, melena, hematochezia. He is complaining of nausea -no urinary retention, no urinary incontinence, no dysuria, no hematuria Musculoskeletal-no joint pain, no muscle tenderness Skin-scattered excoriations on bilateral lower extremities below the knees. Neuro-no isolated weakness, no paresthesia Psych-no depression, no anxiety. He denies suicidal ideation Physical Exam 2 Physical Exam: General-alert and oriented x3, no fever, no chills HEENT-head atraumatic and normocephalic, pupils equal and reactive to light, extraocular muscles intact Neck-no lymphadenopathy or thyromegaly, trachea midline Chest-clear to auscultation. No rales, wheezing or rhonchi Cardiac-regular rate and rhythm, normal S1 and S2 Abdomen-normal bowel sounds, no hepatosplenomegaly Extremities-no cyanosis, clubbing, or edema Skinmultiple excoriations bilateral lower extremities below the knees Neuro-cranial nerves II through XII intact, motor and sensory function within normal limits, strength symmetrical, no focal deficits Psych-normal affect, normal mood. He denies suicidal ideation Results & Data Results & Data Vital Signs (Past 12 Hours) Vital Signs Temp Pulse Pulse Resp BP BP Pulse Ox 07/21/23 12:07 36.4 C L 79 16 154/83 H 99 07/21/23 09:09 84 180/101 H 07/21/23 07:37 91 H 07/21/23 07:35 36.4 C L 93 H 16 196/95 H 193/103 H 98 07/21/23 04:10 36.6 C 89 20 146/76 H 96 O2 Del Method 07/21/23 12:07 Room Air 07/21/23 09:09 07/21/23 07:37 07/21/23 07:35 Room Air 07/21/23 04:10 Room Air Laboratory Results 07/21/23 06:30 07/21/23 06:30 PG Care Time/CCT Total # of Minutes Spent Total Time Spent with Patient: Total time spent is greater than 50% in coordination of care (as documented) at patient's floor/unit and/or counseling patient: Coding Level of Care Code 92313 SUB INP/OBS CARE 3/50MIN Diagnoses Diabetic ketoacidosis E11.10 Suicidal ideation R45.851 Abdominal pain R10.9 T2DM (type 2 diabetes mellitus) E11.9 Hypertension I10 Alcohol use Z78.9 Hyponatremia E87.1 Chest pain R07.9
[2023-07-21] MEDS: METOCLOPRAMIDE HCL 5 MG TABLET PO SCH (17:35)
[2023-07-21] MEDS: METOPROLOL TARTRATE 50 MG TAB PO SCH (17:36)
[2023-07-21] MEDS: AMMONIUM LACTATE 12% LOTION 225 GM BTL EXT SCH (20:49)
[2023-07-21] MEDS: VANCOMYCIN HCL 1,250 MG in SODIUM CHLORIDE 0.9% 250 ML IV SCH (20:49)
[2023-07-22 06:39] LABS: Basophils # (auto) 0.09 K/uL (0.00-0.20); Basophils % (auto) 1.5 %; Eosinophils # (auto) 0.08 K/uL (0.00-0.50); Eosinophils % (auto) 1.3 %; Hematocrit (blood only) 40.2 % (42.0-52.0); Immature Granulocytes # (auto) 0.06 K/uL (0.01-0.20); Lymphocytes # (auto) 1.14 K/uL (1.20-3.40); Lymphocytes % (auto) 19.2 %; Mean Corpuscular Hemoglobin 29.9 pg (25.0-34.0); Mean Corpuscular Hgb Conc 34.8 g/dL (32.0-36.0); Mean Corpuscular Volume 85.7 fL (80.0-100.0); Mean Platelet Volume 9.1 fL (9.4-12.4); Monocytes # (auto) 0.72 K/uL (0.11-0.59); Monocytes % (auto) 12.1 %; Neutrophils # (auto) 3.84 K/uL (1.40-6.50); Neutrophils % (auto) 64.9 %; Platelet Count 250 K/uL (130-400); RDW Coefficient of Variation 13.3 % (11.5-14.5); RDW Standard Deviation 41.6 fL (36.4-46.3); Red Blood Count 4.69 M/uL (4.70-6.10); White Blood Count 5.93 K/ul (4.8-10.8)
[2023-07-22 07:15] LABS: BUN Creatinine Ratio 16.3 (10-20); Calcium 9.5 mg/dl (8.6-10.3); Creatinine Clr Calc Pharmacy 94.3 ml/min; Est GFR (African American) 109.2 ml/min; Est GFR (Non-African American) 94.3 ml/min
[2023-07-22] MEDS: INSULIN HUMAN NPH SC SCH (08:47)
[2023-07-22] MEDS: METOPROLOL TARTRATE 50 MG TAB PO STA (10:11)
--- NOTE | 2023-07-22 12:07 | Discharge Summary ---
Date of Service July 22, 2023 Admission HPI Per Admitting Provider Aj is a 62-year-old male who presents to the ER with 10 hours of lower sternal chest/abdominal pain waxing and waning but generally constant since this morning. EKG is normal sinus rhythm without territorial ischemia, Trope and 2- hour repeat are normal. Sodium is 128, potassium is 4.5. Woke up this morning with pain in his chest and stomach. Lives in his truck, got up and got back on the road and noted pain was waxing and waning as he drove but was constant for many hours. Got nauseaus and short of breath intermittent. 1x vomiting this AM, clear, nonbloody, nonbilious. Has continued to be nauseus through the day. Denies abdominal pain. +poor appetite. No diarrhea, some slight intermittent constipation with none recently and nochange. No sweating. No fever, no chills but has been cold. MedHx: - T2DM, currently not on treatment - Denies history of CAD - Hx of L heel sore - No history of strokes, blood clots, liver disease, or kidney disease Does not take any prescription medications, but had been on lisinopril for blood pressure in the past. Was on lantus in the past. Does not have a PCP. HE is on his way back to [place] after beign in [place] for a few months. Was on his way back, when he had chest pain today. Medical History: Reviewed Medications: Reviewed Surgical History: Reviewed Family history: Reviewed Allergies: Reviewed. NKDA Social History: Chews 1 can of snuff weekly x40 years. Former cigarette use, no vape use. Alcohol use 1-2 days per week, 8-10 beers when he does drink.Had a beer last night Code Status: Full COde Principal Diagnosis Diabetic ketoacidosis Discharge Exam General-alert and oriented x3, no fever, no chills HEENT-head atraumatic and normocephalic, pupils equal and reactive to light, extraocular muscles intact Neck-no lymphadenopathy or thyromegaly, trachea midline Chest-clear to auscultation. No rales, wheezing or rhonchi Cardiac-regular rate and rhythm, normal S1 and S2 Abdomen-normal bowel sounds, no hepatosplenomegaly Extremities-no cyanosis, clubbing, or edema Skinmultiple excoriations bilateral lower extremities below the knees Neuro-cranial nerves II through XII intact, motor and sensory function within normal limits, strength symmetrical, no focal deficits Psych-normal affect, normal mood. He denies suicidal ideation Discharge Data Allergies Allergy/AdvReac Type Severity Reaction Status Date / Time Iodinated Contrast Media Allergy Intermediate Hives Unverified 07/19/23 20:25 feathers Allergy Mild Sneezing Verified 07/19/23 17:05 metformin AdvReac Severe PANCREATITI Verified 07/19/23 17:05 S Consultations 07/19/23 18:57 ED Decision to Admit Stat 07/20/23 00:57 Consult Psychiatry Routine Ordered Studies 07/19/23 19:13 CT Abd and Pelvis [CT abd pelvis IV con only] Stat Hospital Course (1) Diabetic ketoacidosis: Present on admission. Most likely cause of metabolic acidosis. Now resolved. He states he did not take his usual insulin for at least 3 weeks prior to this admission. Anion gap is now normal. He is noncompliant with his diet. NPH insulin uptitrated again today, July 21. He is medically stable for discharge. (2) Suicidal ideation: Currently denied by patient. He has been seen by psychiatry and he is no longer a threat to himself or others and does not require suicide precautions and does not need inpatient treatment at this time (3) Abdominal pain: With nausea. Appears to be due to DKA. Symptomatic treatment. Oral Reglan therapy started on July 20. No apparent vomiting (4) T2DM (type 2 diabetes mellitus): By history. He states he has not had any insulin for the past 3 weeks prior to this admission. He is now on basal insulin therapy along with sliding scale coverage. ADA diet. Hemoglobin A1c is markedly elevated at 10.3. (5) Hypertension: Formerly on lisinopril. Metoprolol started on July 20, for blood pressure control. Dosage uptitrated today, July 21. Will monitor (6) Alcohol use: Patient reports he drinks 1 to 2 days/week, about 8-10 beers in a sitting when he does drink. Has had multiple recent alcohol free days without withdrawal symptoms. (7) Hyponatremia: Serum osmolarity 300. This appears to be pseudohyponatremia due to hyperglycemia. Serial labs. Improving (8) Chest pain: Atypical. No acute EKG changes. No evidence of acute coronary syndrome. Will follow Plan Discharge back to his residence in [place] today, July 21 Total Time Total Time Spent Total Time Spent (In Minutes): 45 minutes Discharge Plan Discharge Items Patient Disposition: Home - Self-Care Reason For Visit: ABDOMINAL PAIN, CHEST PAIN Discharge Diagnosis: Diabetic ketoacidosis, noncardiac chest pain Condition on Discharge: Good Activity: Resume your previous activity Non-emergency contact: Primary Care Provider Call non-emergency contact if: your symptoms worsen Follow-up/Referrals: PCP,NO [Primary Care Provider] - Diet: Carb Consistent or DM2 Addtl Attending Provider Instructions: Take NPH insulin twice daily, at breakfast and at suppertime. Check glucose before each insulin administration twice daily and keep a record to show to your primary care doctor. Take metoprolol twice daily for blood pressure control. Take Reglan before meals and at bedtime to control nausea Pending Studies at Discharge: No Stand-Alone Forms: MyDoc[employer], Smoking Cessation Medications and DC Order Prescriptions: New metoprolol tartrate 100 mg Tablet 100 mg PO BID Qty: 60 0RF metoclopramide HCl 5 mg Tablet 5 mg PO ACHS Qty: 100 0RF Novolin N FlexPen 100 unit/mL (3 mL) insulin pen 30 unit subcut BID Qty: 15 0RF Novolin N NPH U-100 Insulin 100 unit/mL Suspension 30 unit SC BID Qty: 0 0RF Discharge Orders: Discharge Order (Routine); Ordered 07/22/23 Ordered By: Lon Betts Admission Data Admit Date/Time: 07/19/23 20:17 Attending Provider: Lon Betts Admit Provider: Lionel Garsia Primary Care Provider: PCP,NO Other Providers: Lionel Garsia; Delfina Junior; Javier Menjivar; Osiel Chavez Jr; Maya Najera; Suze Walker; Kulwinder Alfred Coding Level of Care Code 88009 INP/OBS DISCH >30 MIN Diagnoses Diabetic ketoacidosis E11.10 Suicidal ideation R45.851 Abdominal pain R10.9 T2DM (type 2 diabetes mellitus) E11.9 Hypertension I10 Alcohol use Z78.9 Hyponatremia E87.1 Chest pain R07.9
[2023-07-22] MEDS ORDERED: METOPROLOL TARTRATE 100 MG TAB PO SCH (21:00)
== END 2023-07-22 13:22 | disposition home or self-care (01) | DRG 638 ==
LOC: ED 16:20 → INTOOBSV 20:17 → SUATTDRO 20:17 → EDINP 20:17 → 2N 22:36